=== PATIENT | male | born 1975 | race Caucasian/White ===

== ENCOUNTER 2020-05-11 12:41 | Outpatient (REF) | payer BC, SELFPAY | END 2020-05-11 12:42 | disposition home or self-care (01) | LOC: HO.LAB 12:41 | PROVIDERS: Visit Provider Internal Medicine | DX: Z20.828 Contact with and (suspected) exposure to other viral communicable diseases (principal) | CPT/HCPCS: C9803; U0003 ==

== ENCOUNTER 2021-05-24 08:09 | Outpatient (REF) | payer BC, SELFPAY ==
[2021-05-24 12:05] LABS: Binax Internal Control QC Valid; Binax Now Covid-19 Ag Negative (Negative)
== END 2021-05-24 08:10 | disposition home or self-care (01) ==
LOC: HO.LAB 08:09
PROVIDERS: Visit Provider Internal Medicine
DX: Z20.822 Contact with and (suspected) exposure to COVID-19 (principal)
CPT/HCPCS: 36415; C9803

== ENCOUNTER 2023-07-31 08:27 | Emergency (ER) | payer BC, SELFPAY ==
--- NOTE | 2023-07-31 08:51 | ED.NAVMDI ---
HPI - Nausea/Vomiting/Diarrhea General Chief complaint: Nausea/Vomiting/Diarrhea Stated complaint: Vomiting Time Seen by Provider: 07/31/23 08:40 Source: patient Mode of arrival: ambulatory Limitations: no limitations History of Present Illness HPI Narrative: 48 yo male with PMH of back pain here with n/v/d abdominal cramps. Family is sick with same illness no travel or known food exposures. 13 yo son is in the bed next to him with same illness and is also a patient. No localized pain. MD elicited complaint: nausea, vomiting, diarrhea and abdominal pain Onset (ago): day(s) (1) Description of vomiting: watery Associated nausea: Yes Associated abdominal pain: Yes Location of pain: diffuse Radiation: diffuse Pain consistency: intermittent Severity: mild Quality: cramping Exacerbating factors: eating Relieving factors: none Context: sick contacts Associated symptoms: loss of appetite, malaise, nausea/vomiting and weakness Related Data Allergies Allergy/AdvReac Type Severity Reaction Status Date / Time Penicillins [PENICILLINS] Allergy Unknown UNKNOWN Unverified 01/30/20 17:24 Sulfa (Sulfonamide Allergy Unknown UNKNOWN Unverified 01/30/20 17:24 Antibiotics) [SULFA (SULFONAMIDE ANTIBIOTICS)] Review of Systems Review of Systems: Constitutional : No Weight loss, No Fever, No Chills ENT/Mouth : No sore throat, No Rhinorrhea Eyes: No Swelling, No Redness Cardiovascular : No Chest Pain, No SOB, NoEdema Respiratory : No Cough, No Sputum, No Wheezing Gastrointestinal : Positive Nausea, Positive Vomiting, positive Diarrhea, positive abdominal Pain, No Hematochezia, No Melena Genitourinary : No Dysuria, No Urinary Frequency, No Hematuria, No Urgency Musculoskeletal : No joint pain, No Myalgias, No Joint Swelling Skin : No Skin Lesions, No rash Neuro : No Weakness, No Numbness, No Dizziness, No Headache Psych : No Anxiety/Panic, No Depression All other systems reviewed and are negative. Gastrointestinal: Gastrointestinal: Reports nausea PMFSH Past Medical History Attestation statement: The following information was validated with the patient. Medical History (Updated 07/31/23 @ 09:04 by Harika Boucher DO) Back pain Surgical History Previous back surgery Social History Social History (Updated 07/31/23 @ 09:01 by Harika Boucher DO) Patient Tobacco Use Status: Tobacco use Unknown Advance Directives: No Advance Directives Information Provided: No Physical Exam Vital Signs: Vital Signs: Last Vital Signs Temp 97.8 F 07/31/23 09:09 Pulse 47 L 07/31/23 09:09 Resp 16 07/31/23 09:09 BP 129/83 07/31/23 09:09 Pulse Ox 99 07/31/23 09:09 O2 Del Method Room Air 07/31/23 09:09 BMI result Body Mass Index 25.9 Appearance: Alert. Oriented X3. No acute distress. active vomiting Eyes: Pupils equal, round and reactive to light. ENT: Pharynx mild dry MM Neck: Normal inspection. Neck supple. CVS: Normal heart rate and rhythm. Pulses normal. Respiratory: No respiratory distress. Breath sounds normal. Abdomen: Soft and mild diffuse ttp Skin: Skin warm and dry. Normal skin color. Normal skin turgor. Extremities: No lower extremity edema. No calf ttp Neuro: Oriented X 3. No motor deficit. No sensory deficit. Medications Administered Discontinued Medications Generic Name Dose Route Start Last Admin Trade Name Freq PRN Reason Stop Dose Admin Sodium Chloride 1,000 mls @ 999 mls/hr 07/31/23 08:45 07/31/23 09:25 Ns IV 07/31/23 09:45 999 mls/hr .Q1H1M LUCIAN Administration Ondansetron HCl 4 mg 07/31/23 08:45 07/31/23 09:25 Ondansetron Hcl 4 Mg/2 Ml Vial IVPUSH 07/31/23 08:46 4 mg ONCE ONE Administration Medical Decision Making Medical Decision Making [facility] Narrative: 48 yo male here with cramps n/v/d son in the bed next to him with same illness and other family members with same illness at this time will obtain basic labs, provide supportive medications and PO challenge. suspect viral syndrome. no localized ttp not toxic appearing Differential Diagnosis Differential Diagnoses: The differential diagnosis associated with the presentation includes viral syndrome Admission/Observation Consideration of admission/observation: Escalation of care including admission/observation considered able to tolerate PO stable for DC Lab Data [facility] Lab Attestation statement: I reviewed the patient's lab results. 07/31/23 09:20 07/31/23 09:20 Labs: Lab Results 07/31/23 Range/Units 09:20 WBC 10.0 (4.8-10.8) X10*3/uL RBC 5.70 (4.60-5.80) X10*6/uL Hgb 15.9 (14.0-18.0) g/dl Hct 46.7 (42.0-52.0) % MCV 81.9 (80.0-98.0) fL MCH 27.9 (27.0-33.0) pg MCHC 34.0 (31.0-36.0) g/dl RDW 12.0 (11.0-16.0) % Plt Count 279 (160-400) X10*3/uL MPV 9.5 (9.4-12.4) fL Immature Gran % (Auto) 0.4 (0.0-0.4) % Neut % (Auto) 85.8 H (45-73) % Lymph % (Auto) 5.5 L (20-40) % [place] % (Auto) 4.7 (2-11) % Eos % (Auto) 3.2 (0-4) % Baso % (Auto) 0.4 (0-2) % Lymph # (Auto) 0.6 L (1.2-4.9) X10*3/uL [place] # (Auto) 0.5 (0.1-1.2) X10*3/uL Eos # (Auto) 0.3 (0.0-0.4) X10*3/uL Baso # (Auto) 0.0 (0.0-0.2) X10*3/uL Abs Immat Gran (auto) 0.04 H (0.00-0.03) X10*3/uL Absolute Neuts (auto) 8.6 H (2.0-8.3) x10*3/uL Absolute Nucleated RBC 0.000 (0.0-0.012) X10*3/uL Nucleated RBC % (auto) 0.0 (0.0-0.2) /100WBC Sodium 142 (135-145) mmol/L Potassium 4.1 (3.3-5.1) mmol/L Chloride 104 (96-108) mmol/L Carbon Dioxide 30 H (22-29) mmol/L Anion Gap 12 (12-20) BUN 17 H (9-16) mg/dL Creatinine 0.85 (0.5-1.4) mg/dL Estim Creat Clear Calc 97.9 Estimated GFR > 60 Random Glucose 112 (60-115) mg/dL Calcium 9.3 (8.4-10.2) mg/dL Magnesium 1.9 (1.6-2.6) mg/dL Total Bilirubin 0.7 (0.0-1.0) mg/dL Direct Bilirubin 0.2 (0.0-0.5) mg/dL AST 19 (5-37) U/L ALT 20 (0-40) U/L Alkaline Phosphatase 68 (39-117) U/L Total Protein 6.9 (6.5-8.0) g/dL Albumin 4.5 (3.5-5.0) g/dL Lipase 22 (8-78) U/L Prescription Management I considered prescription management with: Other Discharge Plan Discharge Clinical Impression: Nausea vomiting and diarrhea Patient Disposition: Home, Self-Care Instructions: Acute Nausea and Vomiting (ED), Acute Diarrhea (ED) Additional Instructions: return for worsening symptoms of fevers, increased pain, bloody stools or any other concerns bland diet for 24 hours drink plent of fluids Stand Alone Forms: Work/School Release
[2023-07-31 09:09] VITALS: BP 129/83; PULSE 47; RESP 16; TEMP 36.6; O2SAT 99; BMI 25.9
[2023-07-31 09:25] LABS: Basophils Percent Auto 0.4 % (0-2); Eosinophils Absolute Auto 0.3 X10*3/uL (0.0-0.4); Eosinophils Percent Auto 3.2 % (0-4); Hematocrit 46.7 % (42.0-52.0); Hemoglobin 15.9 g/dl (14.0-18.0); Imm Gran Abs Auto 0.04 X10*3/uL (0.00-0.03); Imm Gran Pct Auto 0.4 % (0.0-0.4); Lymphocytes Absolute Auto 0.6 X10*3/uL (1.2-4.9); Lymphocytes Percent Auto 5.5 % (20-40); MANUAL DIFF FLAG NO; Mean Corpuscular Hemoglobin 27.9 pg (27.0-33.0); Mean Corpuscular Volume 81.9 fL (80.0-98.0); Mean Platelet Volume 9.5 fL (9.4-12.4); Monocytes Absolute Auto 0.5 X10*3/uL (0.1-1.2); Monocytes Percent Auto 4.7 % (2-11); Neutrophils Absolute Auto 8.6 x10*3/uL (2.0-8.3); Neutrophils Percent Auto 85.8 % (45-73); Platelet Count 279 X10*3/uL (160-400)
[2023-07-31] MEDS: 0.9 % Sodium Chloride 1,000 ML 999 ML IV (09:25)
[2023-07-31] MEDS: ondansetron HCL 4 MG/2 ML VIAL IVPUSH (09:25)
[2023-07-31 09:39] LABS: Alanine Aminotransferase 20 U/L (0-40); Albumin Level 4.5 g/dL (3.5-5.0); Alkaline Phosphatase 68 U/L (39-117); Anion Gap 12 (12-20); Aspartate Amino Transferase 19 U/L (5-37); Bilirubin Direct 0.2 mg/dL (0.0-0.5); Bilirubin Total 0.7 mg/dL (0.0-1.0); Blood Urea Nitrogen 17 mg/dL (9-16); Calcium 9.3 mg/dL (8.4-10.2); Carbon Dioxide 30 mmol/L (22-29); Chloride 104 mmol/L (96-108); Creatinine Clr Calc Pharmacy 97.9; Estimated Glomerular Filt Rate > 60; Glucose Random 112 mg/dL (60-115); Lipase 22 U/L (8-78); Magnesium 1.9 mg/dL (1.6-2.6); Potassium 4.1 mmol/L (3.3-5.1); Sodium 142 mmol/L (135-145); Total Protein 6.9 g/dL (6.5-8.0)
--- NOTE | 2023-07-31 09:45 | PC.NURSE ---
pt actively vomiting with son when son getting seen. pt checked in himself. pale and weak. 20G IV placed to LAC. fluids hung and pt medicated per jul. pt resting quietly on strertcher.
[2023-07-31 11:03] VITALS: BP 122/70; PULSE 49; RESP 16; TEMP 36.7; O2SAT 98
== END 2023-07-31 11:04 | disposition home or self-care (01) ==
PROVIDERS: Emergency Provider Emergency Medicine; PCP Family Medicine
DX: R11.2 Nausea with vomiting, unspecified (principal); R19.7 Diarrhea, unspecified
CPT/HCPCS: 36415; 80048; 80076; 83690; 83735; 85025; 96361; 96374; 99284; J2405